=== PATIENT | female | born 1930 | race Caucasian/White ===

== ENCOUNTER 2016-09-04 18:26 | Observation (INO) | payer MEDICARE, BC ==
--- NOTE | ~2016-09-04 | DS ---
Discharge Summary [address] [place]. [address] NAME: FARTUN ALBERT : 34 STATUS : DIS Olinda PAT#: [id number] AGE: 86 ADM/REG DATE : 09/04/16 MR#: [id number] REPORT SERV DATE: 11/20/16 DICTATED BY: ROGER REEVES DATE: 11/16/16 REPORT STATUS : Draft TRANSCRIBED BY: MODL DATE: 11/16/16 ADMISSION DATE: 09/04/2016 DISCHARGE DATE: 09/06/2016 DISCHARGE DIAGNOSES: 1. Chronic aplastic anemia. 2. Symptomatic anemia. 3. Insulin-dependent diabetes type 2. 4. Chronic systolic/diastolic heart failure. 5. History of gastrointestinal lymphoma, status post colostomy. 6. Rheumatoid arthritis. 7. Hypovolemic hypotension. DISCHARGE MEDICATIONS: Per med rec. DISPOSITION AND FOLLOWUP: The patient is medically stable for discharge. Follow up with a semiconductor processing group leader as directed. HISTORY AND PHYSICAL: Per initial assessment. DISCHARGE VITALS: Temperature 97.7, heart rate 68, blood pressure 114/55, respiratory rate 16, O2 saturation 99 on room air. HOSPITAL COURSE: An 86-year-old woman with history of chronic aplastic anemia requiring recurrent blood transfusions, brought into the emergency room because she was noted to have low hemoglobin at the nursing facility. The patient was noted to have hypotension on arrival to the emergency room. The patient was admitted and was given 2 units of packed red blood cells. On evaluation on second day of admission, the patient was asymptomatic and wanted to be discharged. Hypotension had resolved. Instructed to follow up with Dr. Kauffman. Instructed to continue taking prior home medications as directed. Further management and followup to be done by Dr. Kauffman. DICTATED BY: MD ZACARIAS Ventura/ALVERTO Aleida Arenas MD / [id number] CC: Aleida Arenas MD Discharge Summary [address] [place]. [address] NAME: FARTUN ALBERT : 34 STATUS : DIS Olinda PAT#: [id number] AGE: 86 ADM/REG DATE : 09/04/16 MR#: [id number] REPORT SERV DATE: 11/20/16 DICTATED BY: ROGER REEVES DATE: 11/16/16 REPORT STATUS : Draft TRANSCRIBED BY: MODL DATE: 11/16/16 Rusty Mauro M.D.
--- NOTE | ~2016-09-04 | HP ---
History And Physical [address] [facility] [place]. [address] NAME: FARTUN ALBERT : 34 STATUS : ADM Olinda PAT#: [id number] AGE: 86 ADM/REG DATE : 09/04/16 MR#: [id number] REPORT SERV DATE: 09/05/16 DICTATED BY: RAMIRO TURNER DATE: 09/05/16 REPORT STATUS : Draft TRANSCRIBED BY: MODL DATE: 09/05/16 DATE OF ADMISSION: 09/04/2016 CHIEF COMPLAINT: Symptomatic anemia. HISTORY OF PRESENT ILLNESS: This is an 86-year-old female, a resident at [facility], with a history of chronic aplastic anemia requiring recurrent blood transfusions, was brought to the Emergency Room at [facility] as she had a low hemoglobin and hematocrit level at the nursing facility. History was obtained from the patient, records from the transferring facility, and reviewing data available on the [employer] system here. According to Ms. Albert, she was in her usual state of health until this afternoon when she was told her blood drawn earlier that day showed very low hemoglobin and hematocrit levels of 6.3 and 19.8. The patient was transferred to the emergency room to be evaluated. In the emergency room, initial workup revealed a hemoglobin as mentioned above. Her blood sugar was 265 and her blood pressure was 92/47 upon arrival. Hospitalist Service was asked to admit her for further evaluation and treatment. At the time of my evaluation, she denied any chest pain, palpitations, or orthopnea. She had no cough, hemoptysis, night sweats, or weight loss. She had not had any recent falls or loss of consciousness. She denied any fevers, chills, nausea, vomiting, diarrhea, and has had no bleeding from anywhere in the recent past. She denied hematemesis, hematochezia, or hematuria. No other history of recent travel or exposures other than those mentioned above. PAST MEDICAL HISTORY: Significant for history of chronic aplastic anemia requiring blood transfusions, insulin-dependent diabetes mellitus, combined systolic and diastolic congestive heart failure, history of GI lymphoma with colostomy and rheumatoid arthritis. SOCIAL HISTORY: She does not smoke, drink, or use recreational drugs. FAMILY HISTORY: Noncontributory. MEDICATIONS: At home were reviewed by me in the chart today and reordered by me. REVIEW OF SYSTEMS: As in history of present illness. All other systems were reviewed in detail and quite unremarkable. PHYSICAL EXAMINATION: GENERAL: This is a pleasant 86-year-old, not in any acute distress. HEENT: Her head is atraumatic, normocephalic. She is alert, awake, oriented to time, place, and person. Pupils are equal, reacting to light and accommodating. External ocular muscles are intact. Membranes are moist and pink. Sclerae are nonicteric. NECK: Supple with no jugular venous distention, lymphadenopathy, or thyromegaly. History And Physical [address] [place]. [address] NAME: FARTUN ALBERT : 34 STATUS : ADM Olinda PAT#: [id number] AGE: 86 ADM/REG DATE : 09/04/16 MR#: [id number] REPORT SERV DATE: 09/05/16 DICTATED BY: RAMIRO TURNER DATE: 09/05/16 REPORT STATUS : Draft TRANSCRIBED BY: ALVERTO DATE: 09/05/16 LUNGS: Clear to auscultation with no wheezes, rubs, or crackles. HEART: Heart sounds were regular with no murmurs, rubs, or gallops. ABDOMEN: Soft, nontender. Bowel sounds are present. There is a colostomy in place clean. NEUROLOGIC: Grossly intact. No focal sensory or motor deficits. Higher functions appeared intact. EXTREMITIES: Showed no cyanosis, clubbing, or edema. VITAL SIGNS: Her vital signs today showed a temperature of 97.7, pulse was 74, and respirations were 18 a minute. Blood pressure upon arrival was 100/57 and oxygen saturations were 96% breathing 2 L of oxygen via nasal cannula. LABORATORY DATA: Reviewed on the [employer] system showed a sodium of 137, potassium 4.1, chloride 98, CO2 of 31, BUN was 24 with a creatinine 0.85, and blood glucose was 265. Her troponin today was 0.02 and CBC showed a white blood cell count of 11,400, hemoglobin was 6.3, hematocrit 19.8, and platelet count was 509,000. Urinalysis was not done in the ER today. Films of the chest x-ray were reviewed by me on the PACS today and interpreted by me. Per my interpretation, there is median sternotomy in the past and right-sided pacemaker as well. There were no lobar consolidations or effusions seen at this time. IMPRESSION: 1. Symptomatic anemia, requiring blood transfusion. 2. Hypotension. 3. Insulin-dependent diabetes mellitus with hyperglycemia. 4. Chronic aplastic anemia requiring blood transfusions. 5. Combined systolic and diastolic congestive heart failure. 6. History of gastrointestinal lymphoma status post excision and colostomy. 7. Rheumatoid arthritis. PLAN: We will admit Ms. Albert to the Hospitalist Service with telemetry for a 24-hour observation period. We will type and cross, and transfuse two units of packed red cells now, follow this with a check of her hemoglobin and hematocrit levels and proceed accordingly. We will transfuse blood as mentioned above and follow her hypotension as well. We will be careful with this given her history of congestive heart failure. For blood sugar control, we will start her on NovoLog given subcutaneously per sliding scale. For congestive heart failure, she is on multiple medications including digoxin, Lasix, Imdur, and beta-blockers along with nitroglycerin. We will continue this and also place her on unfractionated heparin for DVT prophylaxis while she is here. I have discussed the above plans with the patient and her family. Questions were answered and they are agreeable to the above recommendations. Hospitalist Services will be following her during her stay here. /ALVERTO Ramiro Turner M.D. / [id number] History And Physical [address] [address] NAME: FARTUN ALBERT : 34 STATUS : ADM Olinda PAT#: [id number] AGE: 86 ADM/REG DATE : 09/04/16 MR#: [id number] REPORT SERV DATE: 09/05/16 DICTATED BY: RAMIRO TURNER DATE: 09/05/16 REPORT STATUS : Draft TRANSCRIBED BY: ALVERTO DATE: 09/05/16 CC: Aleida Arenas MD
[~2016-09-04 18:26] MED LIST: AMARYL2 PO; ASAEC PO; CALMOSEPTINE TOP; DIGITEK0.25 MG PO; FLORASTOR250 MG PO; HUMALOG SC; IMDUR60 PO; KLOR-CON 1010 MEQ PO; L40 PO; MEG20 PO; NITROSTAT0.4 MG SL; NORCO1 TAB PO; P5 PO; TOPXL50 PO; VANTIN100 MG PO; ZANTAC150 MG PO
[2016-09-04 19:22] LABS: MEAN CORPUS HGB CONC 31.8 g/dL (32.0-36.0); MEAN CORPUSCULAR HEMOGLOB 27.5 pg (26.0-34.0); MEAN CORPUSCULAR VOLUME 86.5 fL (80-100); MEAN PLATELET VOLUME 11.6 fL (9.2-13.0); PLATELET COUNT 509 10/3/uL (150-400); RBC DISTRIBUTION WIDTH 16.3 % (12.0-16.0); WHITE BLOOD CELLS 11.4 10/3/uL (4.5-10.5)
[2016-09-04 19:25] LABS: HEMATOCRIT 19.8 % (36.0-48.0); HEMOGLOBIN 6.3 g/dL (12.0-16.0); RED CELL COUNT 2.29 10/6/uL (4.0-5.6)
[2016-09-04 19:26] LABS: MANUAL DIFF YES %
[2016-09-04 19:27] LABS: INTERNATIONAL NORMAL RATI 1.4 UNITS (-); PARTIAL THROMBO TIME 28.2 SEC (22.5-37.2); PROTIME (NOT ORD) 16.9 SEC (12.0-14.5)
[2016-09-04] MEDS ORDERED: AMARYL2 PO (19:35)
[2016-09-04] MEDS ORDERED: NOVOLOG SC (19:35)
[2016-09-04 19:36] LABS: CALCIUM, SERUM 8.3 MG/DL (8.5-10.4); CHEST PAIN PROFILE TAT 0 Hrs 20 Mins; CHLORIDE, SERUM 98 MMOL/L (96-112); CO2 (CARBON DIOXIDE) 31 MMOL/L (24-34); CREATININE 0.85 MG/DL (0.55-1.02); GFR AFRICAN AMERICAN 73 ML/MIN (>=60); GFR NON AFRICAN AMERICAN 63 ML/MIN (>=60); GLUCOSE, SERUM 265 MG/DL (60-99); SODIUM, SERUM 137 MMOL/L (135-148); TROPONIN I <0.02 NG/ML (<0.05)
[2016-09-04] MEDS ORDERED: CALTRA600D PO (19:36)
[2016-09-04] MEDS ORDERED: ZANTAC 150 PO (19:36)
[2016-09-04] MEDS ORDERED: L40 PO (19:36)
[2016-09-04] MEDS ORDERED: IMDUR60 PO (19:36)
[2016-09-04] MEDS ORDERED: TOPXL50 PO (19:37)
[2016-09-04] MEDS ORDERED: KLOR-CON 1010 MEQ PO (19:38)
[2016-09-04] MEDS ORDERED: ASABAYER PO (19:38)
[2016-09-04] MEDS ORDERED: P5 PO (19:38)
[2016-09-04] MEDS ORDERED: NITROSTAT0.4 MG SL (19:39)
[2016-09-04] MEDS ORDERED: DSS PO (19:39)
[2016-09-04] MEDS ORDERED: LAN125 PO (19:39)
[2016-09-04] MEDS ORDERED: MOMUD PO (19:40)
[2016-09-04] MEDS ORDERED: NORCO1 TA1 PO (19:40)
[2016-09-04 19:42] LABS: BUN (BLOOD UREA NITROGEN) 24 MG/DL (6-23); POTASSIUM, SERUM 4.1 MMOL/L (3.5-5.3)
[2016-09-04 19:57] LABS: BAND NEUTROPHILS 10 %; ER DIFF TAT 0 Hrs 41 Mins; LYMPHOCYTES 36 %; MONOCYTES 3 %; MONOCYTES ABSOLUTE (CALC) 0.34 10/3/uL (0.21-1.20); NEUTROPHILS ABSOLUTE (CALC) 6.95 10/3/uL (2.02-8.40); PLATELET ESTIMATE SLT INC (ADEQUATE); SEGMENTED NEUTROPHIL (0) 51 %; TOTAL NUCLEATED CELLS 100
[2016-09-05 17:09] LABS: HEMATOCRIT 27.3 % (36.0-48.0); HEMOGLOBIN 9.3 g/dL (12.0-16.0)
== END 2016-09-06 11:46 ==
LOC: ER 18:26 → CDU1 19:00
PROVIDERS: Emergency Medicine; Internal Medicine
DX: D61.9 Aplastic anemia, unspecified (principal); M06.9 Rheumatoid arthritis, unspecified; I50.40 Unspecified combined systolic (congestive) and diastolic (congestive) heart failure; I95.9 Hypotension, unspecified; E11.65 Type 2 diabetes mellitus with hyperglycemia; Z79.4 Long term (current) use of insulin; Z79.899 Other long term (current) drug therapy
CPT/HCPCS: 36415; 36430; 71010; 80048; 82962; 83036; 83735; 84100; 84484; 85014; 85018; 85025; 85610; 85730; 86850; 86900; 86901; 86920; 87040; 96372; 99285; A9270-GY; G0378; J1610; P9016